=== PATIENT | male | born 1970 | race Two or more races ===

== ENCOUNTER 2020-11-26 21:40 | Emergency (ER) | payer MEDICAID ==
[~2020-11-26] VITALS: Ht 167.6 cm; Wt 91.0 kg
[2020-11-26] MEDS: SODIUM CHLORIDE 0.9% 1,000 ML IV ONE (23:52)
[2020-11-27 06:56] VITALS: BP 127/85
== END 2020-11-27 07:03 | disposition home or self-care (01) ==
LOC: EDBD 21:40 → ER 21:40
DX: F10.129 Alcohol abuse with intoxication, unspecified (principal); S80.211A Abrasion, right knee, initial encounter; I49.9 Cardiac arrhythmia, unspecified; E11.9 Type 2 diabetes mellitus without complications; Z86.39 Personal history of other endocrine, nutritional and metabolic disease; X58.XXXA Exposure to other specified factors, initial encounter; Y93.89 Activity, other specified; Y92.89 Other specified places as the place of occurrence of the external cause; Y99.8 Other external cause status; Y90.9 Presence of alcohol in blood, level not specified
CPT/HCPCS: 93005; 96360; 96361; 99285; J7030